=== PATIENT | female | born 1955 ===

== ENCOUNTER 2022-06-14 05:33 | Day surgery (SDC) | payer OTHER ==
[~2022-06-14] VITALS: Ht 160 cm; Wt 83.9 kg
[~2022-06-14 05:33] MED LIST: [UNRECOGNIZED DRUG - OTHER] PO
[2022-06-14] MEDS ORDERED: COLACE100 MG PO (12:36)
[2022-06-14] MEDS ORDERED: ULTRACET PO (12:36)
== END 2022-06-14 16:10 | disposition home or self-care (01) ==
LOC: CIR.AMB 05:33
PROVIDERS: ATTEND Surgery
DX: D12.8 Benign neoplasm of rectum (principal); Z20.822 Contact with and (suspected) exposure to COVID-19; I10 Essential (primary) hypertension